=== PATIENT | male | born 1985 | race Caucasian/White ===

== ENCOUNTER 2020-08-01 17:26 | Emergency (ER) | payer BC, SELFPAY ==
[2019-03-21 13:36] VITALS: BMI 47.2
[2020-08-01 17:26] VITALS: BP 163/104; PULSE 73; RESP 20; TEMP 36.9; O2SAT 99; BMI 47.5
[2020-08-01 17:28] VITALS: BP 163/104; PULSE 73; RESP 20; TEMP 36.9; O2SAT 99
[2020-08-01 18:06] VITALS: O2SAT 95
--- NOTE | 2020-08-01 18:10 | RAD_ITS ---
STUDY: X-RAY CHEST REASON FOR EXAM: Male, 35 years old. shortness of breath TECHNIQUE: Single AP portable view of the chest. COMPARISON: 10/13/15. FINDINGS: The lungs are clear and expanded. There is no demonstrated pleural abnormality. Normal size heart. Normal mediastinum and lex. Normal visualized pulmonary arteries. Normal visualized aortic arch and descending thoracic aorta. Normal visualized thoracic spine. Normal visualized ribs, clavicles, and shoulders. There is no demonstrated abnormality of the visualized soft tissue structures of the upper abdomen. RAD/Chest 1 View (Portable) IMPRESSION: Normal x-ray examination of the chest. Electronically Signed: Madeline Briggs MD at 18:47 EST Tel , Service support ,
--- NOTE | 2020-08-01 18:21 | EKG12_ITS ---
Test Reason : SOB Blood Pressure : / mmHG Vent. Rate : 059 BPM Atrial Rate : 059 BPM P-R Int : 200 ms QRS Dur : 086 ms QT Int : 406 ms P-R-T Axes : 028 007 043 degrees QTc Int : 401 ms Sinus bradycardia Otherwise normal ECG Confirmed by SUZI DONG, MICHELLE ([id number]), dictionary editor WOODY ESTRADA ([id number]) on 08/06/2020 6:42:38 AM Referred By: CLARISA Confirmed By:MICHELLE ARCHER MD
--- NOTE | 2020-08-01 18:22 | ED.DCSUM_ITS ---
History of Present Illness Chief Complaint: Shortness of Breath Informant: Patient Narrative: Patient is a 35-year-old male with a past medical history of hypertension, hyperlipidemia, gout who presents to the emergency department for shortness of breath. He was diagnosed with Covid on July 03, 2020. He states that his initial symptoms did improve but his shortness of breath has stuck around. It is not constant and does come and go. He is currently denying shortness of breath. He tried to see his PCP who referred him to the emergency department. He states he does get some chest discomfort but only when coughing. No chest discomfort when taking deep breaths. He denies any leg swelling or calf pain. No nausea/vomiting or diarrhea. He is still having a mild cough but has improved significantly. His loss of taste and smell has returned. He did have headaches which have also resolved. He did have some intermittent fevers but he denies this recently. He denies any smoking history. Past Medical History - Allergies and Home Meds Allergies/Adverse Reactions: Allergies codeine Allergy (Verified 08/01/20 17:28) Unknown Iodinated Contrast Media [CONTRASTS] Allergy (Verified 08/01/20 17:28) Hives Penicillins [PCN] Allergy (Verified 08/01/20 17:28) Unknown Primary Care Physician: Abhishek Almanzar MD [Primary Care Provider] - 1-2 Days if not improving Prior records reviewed: Yes Past Medical History: - - Per HPI Surgical History: noncontributory Smoking Status: Never smoker Review of Systems All systems negative except as indicated General: Denies: Chills, Fever, Sweats Eyes: Denies: Visual changes - bilaterally, Diplopia ENT: Denies: Rhinorrhea, Sore throat Cardiovascular: Denies: Chest pain, Palpitations Respiratory: Reports: Dyspnea, Cough. Denies: Dyspnea on exertion Gastrointestinal: Denies: Abdominal pain, Nausea, Vomiting, Diarrhea Genitourinary: Denies: Dysuria, Hematuria, Frequency Musculoskeletal: Denies: Back pain, Extremity Pain Skin: Denies: Rash, Wounds Neurological: Denies: Headache, Weakness, Numbness Physical Exam Vital Signs/Narrative: Vital Signs Temp Pulse Resp BP Pulse Ox 08/01/20 17:28 98.4 F 73 20 H 163/104 H 99 08/01/20 17:26 98.4 F 73 20 H 163/104 H 99 Inital Vital Signs reviewed: Yes General: Well nourished, Obese, No Acute Distress Head: Normocephalic, Atraumatic Eyes: Perrl, EOMI ENT: Moist mucous membranes, No rhinorrhea Neck: Supple, Nontender Cardiovascular: Regular rate, Regular rhythm, No murmurs Respiratory: No distress, CTA bilaterally Abdomen: Soft, Nontender, Nondistended, Normal bowel sounds Back: Nontender, Normal Inspection Extremities: Nontender, No edema. Negative for: Edema, Calf Tenderness Skin: Normal color, No rash Neurological: Alert, Oriented x3, Cranial nerves II-XII grossly intact, Normal Strength, Normal Sensation Psychological: Normal affect, Normal Mood Diagnostic/Tx/Re-eval Chest X-Ray - ED: 1 View - EKG interpretation performed by myself. Single view portable x-ray. Normal mediastinum. Normal cardiac silhouette. No evidence of consolidation. No pleural effusions. Agree with radiologist interpretation. - EKG Initial EKG Interpretation: - - Rate of 59 bpm in sinus bradycardia. Normal intervals. Normal axis. No significant ST elevations or depressions. No T wave abnormal ities. - Medical Decision Making Patient presents to the emergency department for shortness of breath post coronavirus infection. He is approximately 1 month out from diagnosis. He states he is starting to feel better but the shortness of breath still persisted. He wanted to see his PCP but was referred to the emergency department. Upon arrival to the ED vital signs within normal limits. Satting well on room air. He is PERC negative. Low concern for PE. He has no shortness of breath or chest pain at this moment. His symptoms do come and go. It is mostly whenever he is having coughing episodes. Will check basic lab work, troponin, EKG and chest x-ray. Patient's lab work-up did not reveal a significant abnormality. EKG and chest x-ray did not show any evidence of acute abnormality either. He has been satting well throughout ED stay. He is in no acute respiratory distress. I have no concern for PE. Will have him follow-up with his PCP. His symptoms are likely just persistent from the recent coronavirus infection. We will have him follow-up with his PCP. Strict return precautions were discussed with him including any worsening shortness of breath or developing any chest pain. He understands and is agreeable this plan. Discharged home in stable condition. All questions were answered. ED Disposition - Plan for ED Patient: Disposition: Home or Assisted Living Diagnosis: Dyspnea Instructions: ED Dyspnea Referrals: Abhishek Almanzar MD [Primary Care Provider] - 1-2 Days if not improving
[2020-08-01 18:28] VITALS: BP 161/92; PULSE 70; RESP 13; TEMP 36.8; O2SAT 98
[2020-08-01 18:45] LABS: Absolute Lymphocyte Count 2.46 X10^3/uL (0.83-4.51); Absolute Neutrophil Count 3.7 X10^3/uL (2.0-7.7); Basophil# 0.03 X10^3/uL; Basophil% 0.4 % (0-1); Eosinophils% 2.9 % (0-5); Hematocrit 47.1 % (40-54); Hemoglobin 15.5 g/dL (13.0-16.5); Lymphocyte # 2.46 X10^3/ul (4.0); Lymphocyte % 35.5 % (19-41); Mean Corp Hgb Conc 32.9 g/dL (32-36); Mean Corpuscular Hgb 30.3 pg (27.0-32.0); Mean Platelet Vol. 11.5 fl (6.2-12.0); Monocyte# 0.53 X10^3/uL; Monocyte% 7.6 % (0-10); NRBC Flagged by Analyzer 0 % (0-5); Neutrophil # 3.69 X10^3/uL (2.7-7.7); Neutrophil % 53.3 % (47-70); Platelet Count 242 K/mm3 (150-450); RBC Distribution Width CV 12.1 % (11.6-14.6); RBC Distribution Width SD 41.1 fl (35.1-43.9); Red Blood Count 5.12 M/mm3 (4.6-6.2); White Blood Count 6.9 K/mm3 (4.4-11.0)
[2020-08-01 19:21] LABS: Anion Gap 4 (5-15); BUN 13 mg/dL (7-18); BUN/Creat Ratio 16.6 RATIO (10-20); Calcium,Total 8.4 mg/dL (8.5-10.1); Chloride 107 mmol/L (98-107); Creatinine, Serum 0.78 mg/dL (0.70-1.30); EST Glomerular Filtration Rate 121 mL/min (>60); Est Glom Filt Rate - Afr Amer 146 mL/min (>60); Estimated Creatinine Clearance 155.15 ml/min; Glucose 72 mg/dL (74-106); Potassium 4.1 mmol/L (3.5-5.1); Sodium Level 140 mmol/L (136-145)
[2020-08-01 19:28] VITALS: BP 148/81; PULSE 66; RESP 15; TEMP 36.9; O2SAT 98
== END 2020-08-01 19:33 | disposition home or self-care (01) ==
PROVIDERS: Emergency Provider Emergency Medicine; PCP Family Medicine
DX: R06.00 Dyspnea, unspecified (principal); R06.02 Shortness of breath; E66.9 Obesity, unspecified; I10 Essential (primary) hypertension; E78.5 Hyperlipidemia, unspecified; Z88.0 Allergy status to penicillin; Z88.8 Allergy status to other drugs, medicaments and biological substances; R05 Cough; R43.9 Unspecified disturbances of smell and taste
CPT/HCPCS: 71045; 80048; 84484; 85025; 93005; 99282; A4216

== ENCOUNTER 2024-09-03 11:04 | Emergency (ER) | payer OTHER, SELFPAY ==
[2024-09-03 11:06] VITALS: BP 199/115; PULSE 72; RESP 18; TEMP 35.9; O2SAT 97
--- NOTE | 2024-09-03 11:48 | CT_ITS ---
PROCEDURE: SPINE LUMBAR WITHOUT CONTRAST REASON FOR EXAM: Injury to the sacrum following a fall. TECHNIQUE: Lumbar spine CT without contrast. COMPARISON: None. FINDINGS: Vertebrae: Normal lumbar vertebral body heights. No evidence of fracture. No spondylolysis. Alignment: No spondylolisthesis. L1-2: Mild degree of disc space narrowing. Mild degree of bilateral neural foraminal stenosis due to facet joint hypertrophy. L2-3: Mild degree of disc space narrowing. Mild degree of disc bulge. Mild bilateral neural foraminal stenosis. Mild degree of bilateral neural foraminal stenosis and central canal stenosis due to hypertrophy of the ligamentum flava. Small left L3-4: Mild degree of bilateral neural foraminal stenosis and central canal stenosis due to hypertrophy of the ligamentum flava L4-5: Small left lateral disc bulge. Narrowing of the left intervertebral foramen. L5-S1: Unremarkable. Sacrum: Visualized upper sacrum and SI joints are unremarkable. Visualized retroperitoneal structures are unremarkable. CT/Spine Lumbar without Contrast IMPRESSION: NO ACUTE LUMBAR FRACTURE. DEGENERATIVE CHANGES. One or more dose reduction techniques were used (e.g., Automated exposure contr ol, adjustment of the mA and/or kV according to patient size, use of iterative reconstruction technique). Reading Location: [facility]
--- NOTE | 2024-09-03 12:18 | EX.ED.DYSGE1 ---
HPI History of Present Illness Chief Complaint: Fall Narrative Narrative: Patient is a 39-year-old male past medical history of hypertension, hypercholesteremia, GERD who presented to the emergency department with a chief complaint of low back pain. Patient states that he slipped on ice earlier today while at work. He states that he not have chest pain shortness of breath lightheadedness or dizziness prior to the fall he simply slipped on ice causing him to fall backwards. He states that he did hit his head but did not pass out he denies any blood thinning medications. Patient states he is does not have any pain outside of his lower back but states that it seems to be getting better. He rates his pain a 2 out of 10. [facility]SH [facility] Home Medications ?Medication ?Instructions ?Recorded ?Last Taken ?Type levothyroxine 150 mcg tablet 150 mcg PO DAILY 10/13/15 Unknown History allopurinol 100 mg tablet 100 mg PO DAILY 05/29/17 Unknown History atorvastatin 40 mg tablet 40 mg PO DAILY 05/29/17 Unknown History ascorbic acid (vitamin C) 1,000 mg 1,000 mg PO DAILY 08/01/20 Unknown History tablet cyanocobalamin (vitamin B-12) 1,000 mcg PO DAILY 08/01/20 Unknown History 1,000 mcg capsule metoprolol succinate 50 mg 50 mg PO DAILY 08/01/20 Unknown History tablet,extended release 24 hr omeprazole 20 mg capsule,delayed 20 mg PO DAILY 08/01/20 Unknown History release tadalafil 5 mg tablet 5 mg PO DAILY 08/01/20 Unknown History Allergy/AdvReac Type Severity Reaction Status Date / Time codeine Allergy Unknown Verified 09/03/24 11:06 Penicillins (PCN) Allergy Unknown Verified 09/03/24 11:06 Social History Smoking Status: Never smoker ROS ROS ED ROS Narrative Constitutional: Denies headache, lightness, dizziness, fevers, chills Eyes: Denies change in vision double vision blurry vision Cardiovascular: Denies chest pain or palpitations Respiratory: Denies coughing wheezing shortness of breath Abdomen: Denies abdominal pain nausea vomit diarrhea : Denies any urinary symptoms denies any difficulty urinating Neurological: Denies numbness, weakness, tingling Musculoskeletal: Complains of low back pain as noted above from the fall Skin: Denies any rashes or lesions EXAM Physical Exam Narrative Exam Narrative: General: Patient is lying in bed rest comfortably did not appear to be in acute distress Head: Atraumatic, normocephalic Eyes: PERRL bilaterally, EOMI bilaterally, no conjunctival injection noted Neck: Soft, supple, trach midline Cardiovascular: Regular rate and rhythm no murmurs gallops rubs noted Respiratory: Clear to auscultation bilaterally Abdomen: No tenderness palpation, soft, nondistended Musculoskeletal: No tenderness palpation midline of the cervical or thoracic spine, mild tenderness palpation in the lower lumbar spine no step-offs or deformities noted. All of the bony prominences and joints taken to full range of motion no pain elicited Extremities: +5/5 strength noted in the bilateral upper and lower extremities, no pedal edema exam Neurological: Patient follow commands knew that he was at [facility] year is 2024. No saddle anesthesia noted Skin: Warm, dry, intact no rashes or lesions noted Const Vital Signs: 09/03/24 11:05 09/03/24 11:06 09/03/24 13:13 Temperature 96.7 F L Temperature Source Temporal Pulse Rate 72 Respiratory Rate 18 Respiratory Effort Normal Non-Labored Respiratory Depth Normal Respiratory Pattern Normal Blood Pressure 199/115 H 176/98 H Blood Pressure Mean 143 124 Pulse Ox 97 Oxygen Delivery Method Room Air MDM MDM MDM Narrative Medical decision making narrative: Patient is a 31-year-old male who presents to the emerged part with chief complaint of slipping on ice landed on his buttock region causing low back pain. On the differential diagnose includes but not limited to compression fracture, musculoskeletal strain. Once workup is obtained reviewed he will be reevaluated. Patient states that he has not anything for pain. Patient's CT lumbar spine without contrast reviewed and showed no acute lumbar fracture degenerative changes. On reevaluation the patient he is feeling better he would like to go home at this point time. Patient was advised to rotate Tylenol and ibuprofen [id number]. He states he does not want a prescription for muscle relaxer. He is encouraged to follow-up his primary care physician and return with worsening symptoms or any concerns. All question concerns answered is discharged home in stable condition. Radiography Diagnostic Testing: Clinical Impression(s) from Imaging Studies Lumbar Spine CT 09/03/24 11:48 IMPRESSION: NO ACUTE LUMBAR FRACTURE. DEGENERATIVE CHANGES. One or more dose reduction techniques were used (e.g., Automated exposure control, adjustment of the mA and/or kV according to patient size, use of iterative reconstruction technique). Reading Location: [id number] Discharge Plan Triage Chief Complaint: Fall ED Provider: Jeff Greer Dx/Rx/DC Orders Clinical Impression: Fall, Low back pain Prescriptions: No Action levothyroxine 150 MCG tablet 150 mcg PO DAILY atorvastatin 40 MG tablet 40 mg PO DAILY allopurinol 100 tablet 100 mg PO DAILY Patient Comments: metoprolol succinate 50 MG tablet extended release 24 hr 50 mg PO DAILY omeprazole 20 MG capsule,delayed release(DR/EC) 20 mg PO DAILY tadalafil 5 MG tablet 5 mg PO DAILY cyanocobalamin (vitamin B-12) 1,000 MCG capsule 1,000 mcg PO DAILY ascorbic acid (vitamin C) 1,000 MG tablet 1,000 mg PO DAILY Primary Care Provider: Abhishek Almanzar Referrals: Abhishek Almanzar MD [Primary Care Provider] - Activity Restrictions/Additional Instructions: Rotate Tylenol and ibuprofen [id number]. Follow-up with your primary care physician outpatient setting. Return with worsening symptoms or concerns. Your CT of your lower back today did not show anything broken. Print Language: Bhutanese Disposition Disposition: Home, Self Care
[2024-09-03 13:13] VITALS: BP 176/98
[2024-09-03 13:33] VITALS: BP 176/98; PULSE 72; RESP 18; TEMP 35.9; O2SAT 97
== END 2024-09-03 13:35 | disposition home or self-care (01) ==
PROVIDERS: Emergency Provider Emergency Medicine; PCP Family Medicine; Referring Provider Emergency Medicine; Visit Provider Emergency Medicine
DX: M54.50 Low back pain, unspecified (principal); E78.00 Pure hypercholesterolemia, unspecified; I10 Essential (primary) hypertension; K21.9 Gastro-esophageal reflux disease without esophagitis; W00.9XXA Unspecified fall due to ice and snow, initial encounter
CPT/HCPCS: 72131; 99284